=== PATIENT | female | born 1995 | race Caucasian/White ===

== ENCOUNTER 2021-06-12 19:59 | Observation (INO) | payer OTHER ==
[~2021-06-12] VITALS: Ht 162.6 cm; Wt 99.8 kg
[2021-06-12] MEDS ORDERED: LABETALOL 20 MG/4 ML VIAL IVP PRN (20:35)
[2021-06-12] MEDS ORDERED: LACTATED RINGERS 1,000 ML IV SCH (20:35)
[2021-06-12] MEDS ORDERED: LABETALOL 100 MG/20 ML VIAL ONE (20:41)
[2021-06-12] MEDS ORDERED: LABETALOL 200 MG TAB ONE (21:14)
[2021-06-12 21:37] LABS: BASOPHILS % (AUTO) 0.4 % (0.0-2.0); EOSINOPHILS % (AUTO) 0.2 % (0.0-4.0); HEMATOCRIT 34.1 % (36-48); HEMOGLOBIN 11.2 g/dL (12.0-16.0); LYMPHOCYTES # (AUTO) 1.4 K/uL (2.5-16.5); LYMPHOCYTES % (AUTO) 21.4 % (20.5-51.1); MEAN CORPUSCULAR HEMOGLOBIN 25 pg (27-31); MEAN CORPUSCULAR HGB CONC 33 g/dL (33-37); MEAN CORPUSCULAR VOLUME 77.2 fL (80-94); MONOCYTES # (AUTO) 0.7 K/uL (0.8-1.0); MONOCYTES % (AUTO) 10.1 % (1.7-9.3); NEUTROPHILS # (AUTO) 4.5 K/uL (1.8-7.7); NEUTROPHILS % (AUTO) 67.9 % (42.2-75.2); PLATELET COUNT (AUTO) 200 K/uL (140-450); RED BLOOD CELL COUNT(AUTO) 4.41 MIL/uL (4.20-5.40); RED CELL DISTRIBUTION WIDTH 14.7 % (11.6-13.7); WHITE BLOOD COUNT (AUTO) 6.7 K/uL (4.8-10.8)
[2021-06-12 22:00] LABS: ALBUMIN 2.7 g/dL (3.4-5.0); CARBON DIOXIDE 23.5 mmol/L (21-32); CREATININE 0.5 mg/dL (0.6-1.3); POTASSIUM 3.5 mmol/L (3.5-5.1); TOTAL BILIRUBIN 0.2 mg/dL (0.0-1.0); URIC ACID 5.4 mg/dL (2.6-7.2)
[2021-06-12 22:13] LABS: APPEARANCE,URINE CLEAR (CLEAR); BILIRUBIN,URINE NEGATIVE (NEGATIVE); BLOOD, URINE NEGATIVE (NEGATIVE); COLOR,URINE YELLOW (YELLOW); LEUKOCYTE ESTERASE ,URINE 1+ (NEGATIVE); NITRITE, URINE NEGATIVE (NEGATIVE); UGLUCOSE NEGATIVE (NEGATIVE)
[2021-06-12 22:29] LABS: RBC,URINE 0-5 /HPF (0-5); WBC,URINE 0-5 /HPF (0-5)
[2021-06-12] MEDS ORDERED: BETAMETH ACET/BETAMETH NA PH 30 MG/5 ML VIAL IM ONE ×2 (22:30→22:31)
[2021-06-12] MEDS ORDERED: BETAMETH ACET/BETAMETH NA PH 30 MG/5 ML VIAL IM SCH (22:55)
[2021-06-12] MEDS ORDERED: NIFEdipine 10 MG CAPLF PO ONE (23:50)
[2021-06-12] MEDS ORDERED: NIFEdipine 10 MG CAPLF ONE (23:50)
[2021-06-13] MEDS ORDERED: LABETALOL 200 MG TAB PO SCH (09:00)
== END 2021-06-13 01:45 | disposition critical access hospital (66) ==
LOC: MLD 19:59
PROVIDERS: ADMIT Obstetrics & Gynecology; ATTEND Obstetrics & Gynecology
DX: O16.3 Unspecified maternal hypertension, third trimester (principal); O62.9 Abnormality of forces of labor, unspecified; Z3A.34 34 weeks gestation of pregnancy
CPT/HCPCS: 36415; 59025; 80053; 81001; 84550; 85025; 85610; 85730; 87086; 96372; 96374; G0378; J0702; J3490